=== PATIENT | female | born 1960 | race African-American/Black ===

== ENCOUNTER → 2019-03-20 | Outpatient (CLI) | payer SELFPAY ==
[~2019-03-20] MED LIST: AMOXICILLIN 8751 TAB PO; ASPIRIN 81M81 MG/TA2 PO; BLOOD PRESSURE PILL; CIPRO 500MG TA500 MG PO; LISINOPRIL AND1 TAB PO; MELOXICAM15 MG PO; NORCO 325 MG-51 TAB PO; NORVASC 5MG5 MG/TAB PO; PRILOSEC 20MG20 MG PO; PYRIDIUM200 M1 PO; ULTRAM 50MG TAB50 MG PO
[2019-03-20 08:32] LABS: COLLECTION METHOD CLEAN CATCH
[2019-03-20 08:34] LABS: HEMATOCRIT 40.2 % (37.0-47.0); HEMOGLOBIN 13.7 g/dl (12.5-16.0); MEAN CELL VOLUME 87 fl (80.0-100.0); MEAN CORPUSCULAR HEMOGLOBIN 30 pg (27.0-31.0); MEAN CORPUSCULAR HGB CONC 34 g/dl (33.0-37.0); MEAN PLATELET VOLUME 9.7 fl (7.4-10.4); PLATELET COUNT 313 K/mm3 (130-400); RED BLOOD COUNT 4.61 M/mm3 (4.10-5.30); REDCELL DISTRIBUTION WIDTH-CV 13.7 % (11.5-14.5)
[2019-03-20 08:40] LABS: MUCOUS Present /lpf; PH 5 (5-8); URINE APPEARANCE Clear; URINE BACTERIA None Seen /hpf; URINE BILIRUBIN Negative (NEGATIVE); URINE BLOOD 2+ (NEGATIVE); URINE COLOR Yellow; URINE GLUCOSE Negative (NEGATIVE); URINE KETONE Negative (NEGATIVE); URINE LEUKOCYTE ESTERASE Negative (NEGATIVE); URINE NITRATE Negative (NEGATIVE); URINE PROTEIN(semi-quant) Negative (NEGATIVE); URINE UROBILINOGEN Negative (NEGATIVE); URINE WBC 0-2 /hpf
[2019-03-20 08:48] LABS: ALBUMIN 4.2 gm/dL (3.5-5.0); BILIRUBIN,TOTAL 0.7 mg/dL (0.0-1.0); CALCIUM 9.3 mg/dL (8.4-10.2); CREATININE, serum 0.98 (0.52-1.25); POTASSIUM 3.2 mmol/L (3.4-5.0); TOTAL PROTEIN 8.2 gm/dL (6.4-8.2)
[2019-03-20 09:18] LABS: THYROID STIMULATING HORMONE 1.25 uIU/mL (0.465-4.680)
== END ==
LOC: COL.LAB 08:05
PROVIDERS: Nurse Practitioner Family
DX: I10 Essential (primary) hypertension (principal)

== ENCOUNTER → 2019-04-03 | Outpatient (CLI) | payer OTHER ==
[2019-04-03 08:52] LABS: COLLECTION METHOD CLEAN CATCH
[2019-04-03 09:29] LABS: CALCIUM 9.6 mg/dL (8.4-10.2); CREATININE, serum 1.09 (0.52-1.25); POTASSIUM 3.9 mmol/L (3.4-5.0)
[2019-04-03 09:53] LABS: MUCOUS Present /lpf; PH 5 (5-8); SQUAMOUS EPITHELIAL 0-2 /hpf; URINE APPEARANCE Clear; URINE BACTERIA None Seen /hpf; URINE BILIRUBIN Negative (NEGATIVE); URINE BLOOD 2+ (NEGATIVE); URINE COLOR Yellow; URINE GLUCOSE Negative (NEGATIVE); URINE KETONE Negative (NEGATIVE); URINE LEUKOCYTE ESTERASE Negative (NEGATIVE); URINE NITRATE Negative (NEGATIVE); URINE PROTEIN(semi-quant) Negative (NEGATIVE); URINE UROBILINOGEN Negative (NEGATIVE); URINE WBC 0-2 /hpf
== END ==
LOC: COL.LAB 08:11
DX: I10 Essential (primary) hypertension (principal); R31.9 Hematuria, unspecified; E87.6 Hypokalemia

== ENCOUNTER 2019-08-27 14:40 | Outpatient (RCR) | payer OTHER | END 2019-08-31 12:40 | LOC: WSOH 14:40 | DX: R20.8 Other disturbances of skin sensation (principal); M50.30 Other cervical disc degeneration, unspecified cervical region ==

== ENCOUNTER → 2019-12-21 | Outpatient (CLI) | payer OTHER | LOC: MC.RAD 16:06 | DX: Z12.31 Encounter for screening mammogram for malignant neoplasm of breast (principal) ==

== ENCOUNTER → 2020-01-06 | Outpatient (CLI) | payer SELFPAY ==
[2020-01-06 09:38] LABS: ALBUMIN 4.3 gm/dL (3.5-5.0); BILIRUBIN,TOTAL 0.6 mg/dL (0.0-1.0); CALCIUM 9.6 mg/dL (8.4-10.2); CREATININE, serum 0.87 (0.52-1.25); POTASSIUM 3.6 mmol/L (3.4-5.0); TOTAL PROTEIN 7.9 gm/dL (6.4-8.2)
== END ==
LOC: COL.LAB 08:16
PROVIDERS: Internal Medicine
DX: I10 Essential (primary) hypertension (principal); Z79.899 Other long term (current) drug therapy

== ENCOUNTER → 2020-06-20 | Outpatient (CLI) | payer SELFPAY | LOC: COL.RAD 13:47 | DX: M47.27 Other spondylosis with radiculopathy, lumbosacral region (principal); M43.17 Spondylolisthesis, lumbosacral region; M51.17 Intervertebral disc disorders with radiculopathy, lumbosacral region ==

== ENCOUNTER → 2021-07-25 | Outpatient (CLI) | payer OTHER | LOC: COL.RAD 13:15 | DX: M75.101 Unspecified rotator cuff tear or rupture of right shoulder, not specified as traumatic (principal); S49.92XD Unspecified injury of left shoulder and upper arm, subsequent encounter; M71.9 Bursopathy, unspecified ==

== ENCOUNTER → 2021-10-17 | Outpatient (CLI) | payer SELFPAY | LOC: COL.RAD 10:29 | DX: R22.1 Localized swelling, mass and lump, neck (principal) ==

== ENCOUNTER → 2022-01-01 | Outpatient (CLI) | payer SELFPAY | LOC: COL.RAD 10:25 | DX: M79.641 Pain in right hand (principal) ==

== ENCOUNTER → 2023-02-07 | Outpatient (CLI) | payer OTHER ==
[~2023-02-07] MED LIST changes: +PREDNISONE50 MG PO
== END ==
LOC: MC.RAD 13:16
DX: Z12.31 Encounter for screening mammogram for malignant neoplasm of breast (principal)